=== PATIENT | female | born 2000 | race Caucasian/White ===

== ENCOUNTER → 2021-06-24 | Outpatient (CLI) | payer OTHER | LOC: KOH-I 06-16 14:00 | DX: E04.2 Nontoxic multinodular goiter (principal) | CPT/HCPCS: 76536 ==

== ENCOUNTER 2021-11-14 12:24 | Emergency (ER) | payer OTHER ==
[2021-11-14 13:08] LABS: HEMOGLOBIN 13.8 gm/dl (12.3-15.3); RED BLOOD COUNT 4.44 M/UL (4.00-5.10)
[2021-11-14 13:25] LABS: BUN/CREATININE RATIO 10 (0-10)
== END 2021-11-14 18:37 | disposition home or self-care (01) ==
LOC: ER1 12:24
PROVIDERS: Emergency Medicine
DX: S32.019A Unspecified fracture of first lumbar vertebra, initial encounter for closed fracture (principal); S22.089A Unspecified fracture of T11-T12 vertebra, initial encounter for closed fracture; S36.029A Unspecified contusion of spleen, initial encounter; J45.909 Unspecified asthma, uncomplicated; Z88.0 Allergy status to penicillin; V89.2XXA Person injured in unspecified motor-vehicle accident, traffic, initial encounter
CPT/HCPCS: 80053; 81001; 83690; 84703; 85025; 87086; 96374; 96375; 96376; 99285; J1885; J2270; J2405; Q9967

== ENCOUNTER → 2021-12-25 | Outpatient (CLI) | payer OTHER ==
[~2021-12-25] MED LIST: CEFDINIR300 MG PO; IBU800 MG PO; PROZAC 20 MG CA20 MG PO; SYNTHROID125 MCG PO
== END ==
LOC: LAB 11:35
DX: E06.3 Autoimmune thyroiditis (principal); R30.0 Dysuria
CPT/HCPCS: 36415; 81001; 84439; 84443; 84481; 87086